=== PATIENT | female | born 1990 ===

== ENCOUNTER → 2020-03-05 | Outpatient (CLI) | payer BC | LOC: ZCOL.LAB 15:09 | DX: Z20.828 Contact with and (suspected) exposure to other viral communicable diseases (principal) ==

== ENCOUNTER → 2020-03-28 | Outpatient (CLI) | payer BC | LOC: ZCOL.LAB 15:46 | DX: Z20.828 Contact with and (suspected) exposure to other viral communicable diseases (principal) ==